=== PATIENT | male | born 1950 | race Caucasian/White ===

== ENCOUNTER → 2017-05-20 | Outpatient (CLI) | payer MEDICARE ==
[~2017-05-20] VITALS: Ht 175.3 cm; Wt 148.3 kg
[~2017-05-20] MED LIST: AMLO10TA2 PO; CHLO25TA2 PO; CHLORHEXIDINE GLUCONATE 2 % 1 PACK (2 CLOTHS) TOPICAL PRN; DEXTROSE 5%-LACTATED RING INJ 1,000 ML IV SCH; ECASA81 PO; HYDR-3516 PO; IBUP1TAB7 PO; INSULIN HUMAN REGULAR 1,000 UNITS/10 ML VIAL SQ PRN; LIDOCAINE HCL 1% PF 5 ML SYRINGE OTHER ONE; LISI10TA3 PO; METOPROLOL TARTRATE 25 MG TAB PO PRN; POVIDONE IODINE 5% (ANTISEPSIS KIT) 4 APPLICATIONS EACH NARE PRN; PROPOFOL 200 MG/20 ML AMP IV ONE; THYR15 PO; VITA2000 PO
--- NOTE | 2017-05-20 10:01 | GIPROC ---
[facility] [address] [facility]. [facility] [address], [address] COLONOSCOPY PROCEDURE REPORT EXAM DATE: 05/20/2017 PATIENT NAME: Harley Camarena MR #: [id number] BIRTHDATE: 1950 ENDOSCOPIST: Bozena Adan MD ORDER #: [id number] PRESCRIPTION CLERK: Giselle Raza and Carline Krause STATUS: outpatient INDICATIONS: The patient is a 66 yr old male here for a colonoscopy due to change in bowel habits PROCEDURE PERFORMED: Colonoscopy with biopsy MEDICATIONS: None and Per Anesthesia. PREP QUALITY: good PREP TYPE:Other: ESTIMATED BLOOD LOSS: None CONSENT: The patient understands the risks and benefits of the procedure and understands that these risks include, but are not limited to: sedation, allergic reaction, infection, perforation and/or bleeding. Alternative means of evaluation and treatment include, among others: physical exam, x-rays, and/or surgical intervention. The patient elects to proceed with this endoscopic procedure. medical equipment was checked for proper function. Hand hygiene and appropriate measures for infection prevention was taken. After the risks, benefits and alternatives of the procedure were thoroughly explained, Informed consent was verified, confirmed and timeout was successfully executed by the treatment team. A digital exam revealed external hemorrhoids The Pentax EC-[id number] endoscope was introduced through the anus and advanced to the cecum, which was identified by both the appendix and ileocecal valve. The instrument was then slowly withdrawn as the colon was fully examined. COLON FINDINGS: Diverticulosis sigmoid,descending diminutive polyp rectum-cold biopsy with complete removal random biopsy from descending-cold biopsy with complete removal. Retroflexed views revealed internal hemorrhoids and Retroflexed views revealed small internal hemorrhoids The scope was then completely withdrawn from the patient and the procedure terminated. PROCEDURE WITHDRAWAL TIME:6minutes ADVERSE EVENTS: There were no complications. IMPRESSIONS: 1. Diverticulosis sigmoid,descending diminutive polyp rectum-cold biopsy with complete removal random biopsy from descending-cold biopsy with complete removal 2. Retroflexed views revealed internal hemorrhoids 3. Retroflexed views revealed small internal hemorrhoids 4. Revealed external hemorrhoids RECOMMENDATIONS: 1. Await biopsy results. Biopsy results will not be ready for 7-10 days. If you don't hear from us in two weeks, call our office for results. 2. Benefiber 2 tsp daily 3. Avoid NSAIDS and Aspirin 4. Probiotics from any [facility] or health food store 5. Yearly rectal exams RECALL: Return 5 years Colonoscopy Bozena Adan MD eSigned: Bozena Adan MD 05/20/2017 10:01 AM cc: PATIENT NAME: Harley Camarena MR#: [id number]
[2017-05-20 10:44] VITALS: BP 128/72; PULSE 69; RESP 18; TEMP 97.9; O2SAT 99
--- NOTE | 2017-05-20 14:55 | EKG ---
Date Performed: 05/20/2017 Time Performed: 08:15:37 PTAGE: 66 years EKG: Sinus rhythm Since previous tracing, no significant change noted NORMAL ECG PREVIOUS TRACING : 12/26/2000 10.05 DOCTOR: Mary Hadley Interpretating Date/Time 05/20/2017 14:53:46
== END ==
LOC: HSDC 07:49
PROVIDERS: ATTEND Internal Medicine Gastroenterology
DX: K57.30 Diverticulosis of large intestine without perforation or abscess without bleeding (principal); K62.1 Rectal polyp; K64.8 Other hemorrhoids; K64.4 Residual hemorrhoidal skin tags; I10 Essential (primary) hypertension
CPT/HCPCS: 88305; 93005